=== PATIENT | male | born 1985 | race Caucasian/White ===

== ENCOUNTER 2016-11-03 14:49 | Emergency (ER) | payer SELFPAY ==
[~2016-11-03 14:49] MED LIST: AMOXICILLIN PO; AMOXICILLIN500 M1 PO; BENTYL20 MG PO; CORTISPORI10 ML SUSP AD; DEBROX15 M1 OT; FAMOTIDINE PO; FLEXERIL10 M1 PO; FLEXERIL10 MG PO; IBUPROFEN800 MG PO; KENALOG IN ORABA5 GM TOP; LAMISIL TOP; MOTRIN600 MG PO; NAPROSYN500 MG PO; PEN-VEE K PO; PHENERGAN PO; PROCTOCREAM-HC30 GM PR; ULTRAM PO; VICODIN 5/1 TAB 5/50 PO; VOLTAREN75 MG PO; ZITHROMAX PO; ZOFRAN ODT4 MG PO
== END 2016-11-03 15:42 | disposition home or self-care (01) ==
LOC: CED 14:49 → CFTX 14:49
DX: K04.7 Periapical abscess without sinus (principal)
CPT/HCPCS: 99282

== ENCOUNTER 2017-03-07 12:46 | Emergency (ER) | payer OTHER ==
[~2017-03-07] VITALS: Ht 180.3 cm; Wt 136.1 kg
== END 2017-03-07 15:53 | disposition home or self-care (01) ==
LOC: CFTX 12:46 → CED 12:46 → CFTX 15:28
DX: S76.911A Strain of unspecified muscles, fascia and tendons at thigh level, right thigh, initial encounter (principal); X50.1XXA Overexertion from prolonged static or awkward postures, initial encounter; Y92.69 Other specified industrial and construction area as the place of occurrence of the external cause; Y99.0 Civilian activity done for income or pay
CPT/HCPCS: 96372; 99283; J1885